=== PATIENT | male | born 1960 | race Hispanic/Latino ===

== ENCOUNTER 2017-01-11 20:33 | Emergency (ER) | payer BC, MEDICAID ==
[2017-01-11 20:33] VITALS: BMI 31.4
[2017-01-11 20:40] VITALS: TEMP 98.6
--- NOTE | 2017-01-11 21:01 | ED PDOC ---
Arrival/HPI - General Chief Complaint: Lower Extremity Problem/Injury Time Seen by Provider: 01/11/17 20:45 Historian: Patient - History of Present Illness Narrative History of Present Illness (Text): 01/11/17 20:58 This 56 yo male with pmh htn, lipidemia, gout, presents to this ED c/o right anterior knee is swelling, erythema, warmth to touch since yesterday morning. Patient called Dr. Edmondson office, who recommended patient to come to ED. Patient denies similar symptoms in the past. Denies fever, sob, cp, abdominal pain, groin pain, trauma, weakness, paresthesias, or abnormal gait. Patient took Allopurinol yesterday and today. Time/Duration: Other (since yesterday morning) Quality: Aching Context: Home Past Medical History - Provider Review Nursing Documentation Reviewed: Yes - Cardiac Hx Hypertension: Yes Hx Mitral Valve Prolapse: Yes Hx Pacemaker: No - Pulmonary Hx Respiratory Disorders: No - Neurological Hx Neurological Disorder: No Hx Paralysis: No - HEENT Hx HEENT Disorder: No - Renal Hx Renal Disorder: No - Endocrine/Metabolic Hx Endocrine Disorders: No - Hematological/Oncological Hx Blood Disorders: No - Integumentary Hx Dermatological Disorder: No - Musculoskeletal/Rheumatological Hx Gout: Yes - Gastrointestinal Hx Gastrointestinal Disorders: No - Genitourinary/Gynecological Hx Genitourinary Disorders: No - Psychiatric Hx Psychophysiologic Disorder: No Hx Emotional Abuse: No Hx Physical Abuse: No Hx Substance Use: No - Surgical History Other/Comment: PORCINE VALVE - Anesthesia Hx Anesthesia: Yes - Suicidal Assessment Feels Threatened In Home Enviroment: No Family/Social History - Physician Review Nursing Documentation Reviewed: Yes Family/Social History: No Known Family HX Smoking Status: Never Smoked Hx Alcohol Use: No (occasional) Hx Substance Use: No Allergies/Home Meds Allergies/Adverse Reactions: Allergies No Known Allergies Allergy (Verified 01/11/17 20:34) Home Medications: Home Meds Medication Instructions Recorded Confirmed Aspirin [Aspir 81] 81 mg PO DAILY 05/06/13 01/11/17 Atorvastatin Calcium [Lipitor] 80 mg PO QAM 05/06/13 01/11/17 Ezetimibe [Zetia] 10 mg PO QAM 05/06/13 01/11/17 Omeprazole [Prilosec] 20 mg PO DAILY 05/06/13 01/11/17 Allopurinol [Zyloprim] 100 mg PO DAILY 01/11/17 01/11/17 amLODIPine [Norvasc] 5 mg PO DAILY 01/11/17 01/11/17 Review of Systems - Review of Systems Constitutional: Normal. absent: Fatigue, Weight Change, Fevers Eyes: Normal ENT: Normal Respiratory: Normal. absent: SOB, Cough Cardiovascular: Normal. absent: Chest Pain, Palpitations Gastrointestinal: Normal. absent: Abdominal Pain, Nausea, Vomiting Genitourinary Male: Normal. absent: Dysuria, Frequency, Hematuria Musculoskeletal: Other (se HPI) Skin: Other (right anterior knee redness.). absent: Rash, Cellulitis Neurological: Normal. absent: Headache, Dizziness, Focal Weakness, Gait Changes , Speech Changes Endocrine: Normal Hemo/Lymphatic: Normal Psychiatric: Normal Physical Exam Vital Signs Temp Pulse Resp BP Pulse Ox 01/11/17 20:36 98.6 F 88 16 133/89 96 Temperature: Afebrile Blood Pressure: Normal Pulse: Regular Respiratory Rate: Normal Appearance: Positive for: Well-Appearing, Non-Toxic, Comfortable Pain Distress: None Mental Status: Positive for: Alert and Oriented X 3 - Systems Exam Head: Present: Atraumatic, Normocephalic Pupils: Present: PERRL Extroacular Muscles: Present: EOMI Conjunctiva: Present: Normal Mouth: Present: Moist Mucous Membranes Neck: Present: Normal Range of Motion Upper Extremity: Present: Normal Inspection, Normal ROM, NORMAL PULSES, Neurovascularly Intact, Capillary Refill < 2s Lower Extremity: Present: NORMAL PULSES, Tenderness (mild right knee tenderness) , Swelling, Erythema, Temperature Abnormalties, Neurovascularly Intact, Capillary Refill < 2 s. No: Edema, CALF TENDERNESS, Cyanosis, Normal ROM ( Patient came flex right knee for up to 90 degrees), Deformity Neurological: Present: GCS=15, CN II-XII Intact, Speech Normal, Motor Func Grossly Intact, Normal Sensory Function, Normal Cerebellar Funct, Gait Normal, Memory Normal Skin: Present: Warm, Dry, Normal Color. No: Rashes Lymphatic: No: Inguinal Adenopathy Psychiatric: Present: Alert, Oriented x 3 Medical Decision Making ED Course and Treatment: 01/11/17 22:51 Patient is resting comfortably, and is in no acute distress. Patient was instructed to follow up with orthopedist in 1-2 days for further evaluation. Re-evaluation Time: 22:52 Reassessment Condition: Re-examined, Improved - Lab Interpretations Lab Results: 01/11/17 21:00 01/11/17 21:00 Lab Results 01/11/17 21:00: Sodium 138, Chloride 101, Potassium 3.9, Carbon Dioxide 28, Anion Gap 13, BUN 14, Creatinine 1.3, Est GFR ( Amer) > 60, Est GFR (Non- Af Amer) 57, Random Glucose 117 H, Uric Acid 7.7, Calcium 9.1, Phosphorus 3.8, Magnesium 2.0, Total Bilirubin 1.6 H, AST 26, ALT 56, Alkaline Phosphatase 70, Total Protein 7.6, Albumin 4.2, Globulin 3.4, Albumin/Globulin Ratio 1.2 01/11/17 21:00: pO2 46, VBG pH 7.39, VBG pCO2 48.0, VBG HCO3 29.1 H, VBG Total CO2 30.6 H, VBG O2 Sat (Calc) 85.6 H, VBG Base Excess 3.3 H, VBG Potassium 4.1, Sodium 139.0, Chloride 100.0, Glucose 124 H, Lactate 1.2, FiO2 21.0, Venous Blood Potassium 4.1 01/11/17 21:00: Urine Color Yellow, Urine Appearance Clear, Urine pH 6.0, Ur Specific [place] 1.025, Urine Protein Trace H, Urine Glucose (UA) Negative, Urine Ketones Negative, Urine Blood Negative, Urine Nitrate Negative, Urine Bilirubin Negative, Urine Urobilinogen 1.0 H, Ur Leukocyte Esterase Small H, Urine RBC 0 - 2, Urine WBC 5 - 10, Ur Epithelial Cells 1 - 3, Amorphous Sediment Few, Urine Bacteria Mod 01/11/17 21:00: PT 11.0, INR 1.02, APTT 28.0 01/11/17 21:00: WBC 6.9, RBC 5.99, Hgb 16.5, Hct 48.8, MCV 81.5, MCH 27.5, MCHC 33.8, RDW 15.5 H, Plt Count 123, MPV 10.6, Gran % 71.4 H, Lymph % (Auto) 22.4, [place] % (Auto) 5.1, Eos % (Auto) 1.0 L, Baso % (Auto) 0.1, Gran # 4.94, Lymph # 1.6, [place] # 0.4, Eos # 0.1, Baso # 0.01, ESR 5 - RAD Interpretation Radiology Orders: 01/11/17 20:55 KNEE W PATELLA RIGHT 3 VIEW [RAD] Stat - Medication Orders Current Medication Orders: Naproxen (Anaprox Ds) 550 mg PO BID JENNIFFER Discontinued Medications Amoxicillin/Clavulanate Potassium (Augmentin 875 Mg-125 Mg Tab) 1 tab PO STAT STA PRN Reason: Protocol Stop: 01/11/17 22:14 Disposition/Present on Arrival - Present on Arrival Any Indicators Present on Arrival: No History of DVT/PE: No History of Uncontrolled Diabetes: No Urinary Catheter: No History of Decub. Ulcer: No History Surgical Site Infection Following: None - Disposition Have Diagnosis and Disposition been Completed?: Yes Diagnosis: Knee pain, Gout Disposition: HOME/ ROUTINE Disposition Time: 22:53 Patient Plan: Discharge Condition: GOOD Discharge Instructions (ExitCare): Gout (ED) Additional Instructions: Call orthopedist for follow up visit in 1-2 days. Take medication as instructed. return to emergency if symptoms worsen. Prescriptions: Amoxicillin/Clavulanate [Augmentin 875 MG-125 MG] 1 tab PO BID #14 tab Colchicine 0.6 mg PO ONCE #3 tablet Indomethacin [Indocin] 50 mg PO TID PRN #30 cap PRN Reason: Pain, Severe (8-10) Referrals: Keaton Edmondson MD [Primary Care Provider] - Follow up with primary Sonu Dumas III, MD [Medical Doctor] - Follow up with primary
[2017-01-11 21:19] LABS: ADD MANUAL DIFF? NO
[2017-01-11 21:25] LABS: BASO # 0.01 K/mm3 (0.0-2.0); BASO % 0.1 % (0.0-3.0); EOS # 0.1 (0.0-0.7); GRAN # 4.94 (1.4-6.5); GRAN % 71.4 % (50.0-68.0); HEMATOCRIT 48.8 % (42.0-52.0); LYMPH # 1.6 (1.2-3.4); LYMPH % 22.4 % (22.0-35.0); MEAN CELL VOLUME 81.5 fL (80.0-105.0); MEAN CORPUSCULAR HEMOGLOBIN 27.5 pg (25.0-35.0); MEAN CORPUSCULAR HGB CONC 33.8 g/dl (31.0-37.0); MEAN PLATELET VOLUME 10.6 fl (7.0-11.0); MONO # 0.4 (0.1-0.6); MONO % 5.1 % (1.0-6.0); PLATELET COUNT 123 10^3/uL (120.0-450.0); RED CELL DISTRIBUTION WIDTH 15.5 % (11.5-14.5); WHITE BLOOD COUNT 6.9 10^3/ul (4.5-11.0)
[2017-01-11 21:26] LABS: URINE BILIRUBIN NEGATIVE (NEGATIVE); URINE BLOOD NEGATIVE (NEGATIVE); URINE GLUCOSE (UA) NEGATIVE (NEGATIVE); URINE KETONE NEGATIVE (NEGATIVE); URINE LEUKOCYTE ESTERASE SMALL Leu/uL (NEGATIVE); URINE PROTEIN TRACE mg/dL (<30 mg/dL); VENOUS BLOOD GAS BASE EXCESS 3.3 mmol/L (0.0-2.0); VENOUS BLOOD PH 7.39 (7.32-7.43)
[2017-01-11 21:32] LABS: URINE APPEARANCE CLEAR (CLEAR); URINE COLOR YELLOW (YELLOW)
[2017-01-11 21:37] LABS: ALB/GLOB RATIO 1.2 (1.1-1.8); ALKALINE PHOSPHATASE 70 U/L (38-133); ALT/SGPT 56 U/L (7-56); AST/SGOT 26 U/L (15-59); BILIRUBIN,TOTAL 1.6 mg/dL (0.2-1.3); BLOOD UREA NITROGEN 14 mg/dL (7-21); CALCIUM 9.1 mg/dL (8.4-10.5); CARBON DIOXIDE 28 mmol/L (21-33); CHLORIDE 101 mmol/L (98-107); GFR AFRICAN-AMERICAN > 60; GLUCOSE,RANDOM 117 mg/dL (70-110); INR 1.02 (0.93-1.08); PHOSPHOROUS 3.8 mg/dL (2.5-4.5); POTASSIUM 3.9 mmol/L (3.6-5.0); SODIUM 138 mmol/L (132-148); TOTAL PROTEIN 7.6 g/dL (5.8-8.3); URIC ACID 7.7 mg/dL (3.5-8.5); URINE RBC 0 - 2 /hpf (0-2)
[2017-01-11 21:38] LABS: URINE AMORPHOUS SEDIMENT FEW; URINE BACTERIA MOD (NEG)
[2017-01-11] MEDS ORDERED: Amoxicillin-Clav 875-125 mg Tab PO STA (22:13)
[2017-01-11] MEDS ORDERED: Naproxen 550 mg Tab PO SCH (22:15)
[2017-01-11 22:42] LABS: ERYTHROCYTE SEDIMENTATION RATE 5 mm/hr (0.00-15.0)
[2017-01-11 23:03] VITALS: BP 129/80; PULSE 70; RESP 17; O2SAT 100
--- NOTE | 2017-01-12 09:31 | RAD ---
PROCEDURE: Right Knee Radiographs. HISTORY: pain, swelling, redness COMPARISON: None. FINDINGS: BONES: Normal. No fracture. JOINTS: Normal. No osteoarthritis. JOINT EFFUSION: None. OTHER FINDINGS: None. IMPRESSION: Normal radiographs of the right knee.
== END 2017-01-11 23:02 | disposition home or self-care (01) ==
LOC: ED 20:33
DX: M25.561 Pain in right knee (principal); M10.9 Gout, unspecified; I10 Essential (primary) hypertension